=== PATIENT | female | born 1970 | race Caucasian/White ===

== ENCOUNTER 2024-04-08 11:12 | Outpatient (CLI) | payer OTHER, SELFPAY ==
[2024-04-08 12:15] LABS: Hematocrit 42.1 % (37.0-47.0); Hemoglobin 13.2 g/dL (12.0-15.0); Mean Corpuscular HGB Conc 31.4 g/dl (32-36); Mean Corpuscular Hemoglobin 29.1 pg (26-34); Mean Corpuscular Volume 92.7 fl (80-100); Mean Platelet Volume 10.7 fl (7.4-10.4); Platelet Count Result 275 k/mm3 (150-375); Red Blood Count 4.54 M/mm3 (4.2-5.4); Red Cell Distribution Width 14.6 % (11.5-14.5); White Blood Count 7.1 K/mm3 (4.5-10.0)
== END 2024-04-08 11:13 | disposition home or self-care (01) ==
LOC: ANHSURGERY 11:20
PROVIDERS: Obstetrics & Gynecology; PCP Family Medicine; Visit Provider Urology
DX: Z01.818 Encounter for other preprocedural examination (principal); D21.9 Benign neoplasm of connective and other soft tissue, unspecified; I10 Essential (primary) hypertension
CPT/HCPCS: 36415; 85027; 86850; 86900; 86901

== ENCOUNTER 2024-04-11 00:07 | Day surgery (SDC) | payer OTHER, SELFPAY ==
[2024-04-04 13:25] VITALS: BMI 36.3
--- NOTE | 2024-04-04 13:40 | PC.NURSE ---
Report to the Outpatient Waiting Room, entrance under the green pavilion located off [facility], at time _0600_ on date _[id number]_. Planned Procedure Time: _0730_.? Time changes happen often and if your time is changed the preop area will call you the afternoon before. - You and your visitor will be asked to self-screen and do not enter if you have any COVID symptoms. Please call surgeon if you need to reschedule. - A mask is optional within the hospital at this time. Patients may have clear liquids (water, carbonated beverages, clear teas, apple juice) until 3 hours prior to surgery with a maximum of 20 ounces. - No food from midnight until time of surgery and no smoking, or chewing tobacco (or any form of nicotine). No chewing gum, candy or mints. Take only the following medications with a SIP of water on the morning of surgery: ___Flecanide and Advair. Ok to use proair if needed.___ DO NOT STOP ANY OF YOUR OTHER PRESCRIPTION MEDICATIONS PRIOR TO SURGERY EXCEPT THE FOLLOWING Hold all vitamins and supplements for 3 days per anesthesiologist. Medications to discontinue per physician Date to take last dose Please no make-up, nail chinese, hairspray, perfume, deodorant, or body powder the day of surgery.? No jewelry (including any body piercings) or valuables the day of surgery, leave them at home.? Please take a shower or bath the night before, or the morning of, surgery with an antibacterial soap.? Wear comfortable, loose fitting clothing.? - Jewelry must be removed prior to entering the operating room.? Rings and piercings that are not removed may be cut off. - The hospital will not accept responsibility for valuables.? - Please leave all valuables, including medications, at home the day of surgery. If you are going home after surgery, a licensed team cdl driver must drive you home.? - NO public transportation without another adult if you receive anesthesia. - We recommend that an adult stay with you for 24 hours following discharge. - We also recommend that you do not drive, make important decision, drink alcoholic beverages, or take any drugs that were not prescribed by your health care provider for at least 24 hours after your discharge time. Follow any additional instructions given to you from your surgeon. Telephone instructions given to __Efrem__and asked if any additional questions and then verbalized understanding. Patient advised to call surgeon office or pre surgery nurse liaison [phone] if any additional questions.
--- NOTE | 2024-04-07 17:50 | PM.IMHP ---
H&P: HPI History of Present Illness Date/Time: 04/07/24 17:50 Chief Complaint: LAURO Narrative: desires treatment of LAURO at the time of her HYST Review of Systems Review of Systems: All systems reviewed & are unremarkable except as noted in HPI and below PMFSH Past Medical History Medical History Fatty tumor removed from right foot Depression Heart disease Asthma Hypertension Surgical History Surgical History H/O neck surgery discs removed and donor ones replaced screws and metal H/O tubal ligation (~2003) Family History Family History Grandparent Cerebrovascular accident maternal grandmother Acute myocardial infarction paternal grandfather Heart disease paternal gradnfather Hypertension paternal grandfather Social History Social History Smoking status: Never smoker Second hand tobacco smoke exposure: No Alcohol intake: never Substance use: current Substance use type: marijuana Other substance usage details: once every couple of months. 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 Gender identity (if verbalized by the patient): Female Sexual Orientation (if Verbalized by the Patient): Bisexual Spiritual care concerns: No Meds Home Medications and Allergies Home Medications ?Medication ?Instructions ?Recorded ?Confirmed ?Type alprazolam 0.25 mg tablet 0.25 mg PO QHS PRN insomnia 11/13/23 04/04/24 History atorvastatin 20 mg tablet 20 mg PO DAILY 11/13/23 04/04/24 History flecainide 100 mg tablet 50 mg PO Q12H 11/13/23 04/04/24 History fluticasone 250 mcg-salmeterol 50 1 inh inhalation BID 11/13/23 04/04/24 History mcg/dose blistr powdr for inhalation (Advair Diskus) hydrocodone 5 mg-acetaminophen 325 1 tablet PO Q8H PRN pain 11/13/23 04/04/24 History mg tablet lisinopril 20 mg tablet 20 mg PO DAILY 11/13/23 04/04/24 History quetiapine 200 mg tablet 200 mg PO QHS 11/13/23 04/04/24 History sertraline 100 mg tablet 100 mg PO DAILY 11/13/23 04/04/24 History albuterol sulfate 90 mcg/actuation 2 inh inhalation QID PRN shortness 04/04/24 04/04/24 History aerosol inhaler of breath or wheezing metoprolol succinate 25 mg 25 mg PO DAILY 04/04/24 04/04/24 History tablet,extended release 24 hr Allergies Allergy/AdvReac Type Severity Reaction Status Date / Time latex AdvReac Severe Swelling Verified 04/04/24 13:21 of Lip/Tongue/Throat Penicillins AdvReac Severe Swelling Verified 04/04/24 13:21 of Lip/Tongue/Throat shellfish derived AdvReac Severe Swelling Verified 04/04/24 13:21 of Lip/Tongue/Throat Exam Narrative: + urethral hypermobility Assessment and Plan Assessment and plan (1) LAURO (stress urinary incontinence, female): Code(s): N39.3 - Stress incontinence (female) (male) Status: Acute Assessment and Plan: urethral sling
--- NOTE | 2024-04-09 16:29 | P.HP_ITS ---
H&P: HPI History of Present Illness Date/Time: 04/09/24 16:29 53-year-old 3 para 2011 female presents with menstrual cycles which had been quite heavy and prolonged with cramping discomfort multiple fibroids were noted on CT scan. Since that time which was approximately 6 months ago she is not having any significant bleeding though does continue to have pelvic cramping and some left lower quadrant pain. Also has had an issue with painful intercourse over the past few months as well. Ultrasound did it reveal enlarged uterus with multiple fibroids. For ovaries themselves without abnormality. also relates stress incontinence, which occurs at least 90 present time with any type of coughing laughing or leaking. Chief Complaint: Fibroid uterus Review of Systems Review of Systems: All systems reviewed & are unremarkable except as noted in HPI and below PMFSH Past Medical History Medical History Fatty tumor removed from right foot Depression Heart disease Asthma Hypertension Surgical History Surgical History H/O neck surgery discs removed and donor ones replaced screws and metal H/O tubal ligation (~2003) Family History Family History Grandparent Cerebrovascular accident maternal grandmother Acute myocardial infarction paternal grandfather Heart disease paternal gradnfather Hypertension paternal grandfather Social History Social History Smoking status: Never smoker Second hand tobacco smoke exposure: No Alcohol intake: never Substance use: current Substance use type: marijuana Other substance usage details: once every couple of months. 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 Gender identity (if verbalized by the patient): Female Sexual Orientation (if Verbalized by the Patient): Bisexual Spiritual care concerns: No Meds Home Medications and Allergies Home Medications ?Medication ?Instructions ?Recorded ?Confirmed ?Type alprazolam 0.25 mg tablet 0.25 mg PO QHS PRN insomnia 11/13/23 04/04/24 History atorvastatin 20 mg tablet 20 mg PO DAILY 11/13/23 04/04/24 History flecainide 100 mg tablet 50 mg PO Q12H 11/13/23 04/04/24 History fluticasone 250 mcg-salmeterol 50 1 inh inhalation BID 11/13/23 04/04/24 History mcg/dose blistr powdr for inhalation (Advair Diskus) hydrocodone 5 mg-acetaminophen 325 1 tablet PO Q8H PRN pain 11/13/23 04/04/24 History mg tablet lisinopril 20 mg tablet 20 mg PO DAILY 11/13/23 04/04/24 History quetiapine 200 mg tablet 200 mg PO QHS 11/13/23 04/04/24 History sertraline 100 mg tablet 100 mg PO DAILY 11/13/23 04/04/24 History albuterol sulfate 90 mcg/actuation 2 inh inhalation QID PRN shortness 04/04/24 04/04/24 History aerosol inhaler of breath or wheezing metoprolol succinate 25 mg 25 mg PO DAILY 04/04/24 04/04/24 History tablet,extended release 24 hr Allergies Allergy/AdvReac Type Severity Reaction Status Date / Time latex AdvReac Severe Swelling Verified 04/04/24 13:21 of Lip/Tongue/Throat Penicillins AdvReac Severe Swelling Verified 04/04/24 13:21 of Lip/Tongue/Throat shellfish derived AdvReac Severe Swelling Verified 04/04/24 13:21 of Lip/Tongue/Throat Exam Const: General: cooperative, healthy appearing and comfortable Resp: Effort & Inspection: normal respiratory effort Auscultation: clear to auscultation bilaterally Cardio: Rate: regular rate Rhythm: regular rhythm GI: Inspection: normal to inspection Auscultation: normal bowel sounds : External Female Exam: normal external appearance Speculum Exam - Vagina: normal appearance of the vagina Speculum Exam - Cervix: normal appearance of the cervix Bimanual exam- vagina & uterus: enlarged ( 8-10 week size) and Uterine tenderness Assessment and Plan Assessment and plan (1) Enlarged uterus: Code(s): N85.2 - Hypertrophy of uterus Status: Acute (2) Fibroid uterus: Code(s): D25.9 - Leiomyoma of uterus, unspecified Status: Acute (3) Dyspareunia: Status: Acute Plan 1. Proceed with robotic assisted laparoscopic hysterectomy with bilateral salpingectomy 2. Sling procedure to be performed by Dr. Murray
[2024-04-11] VITALS (13 sets, daily range): BP systolic 108–142; BP diastolic 58–96; PULSE 61–79; RESP 10–20; TEMP 36–36.9; O2SAT 94–100
--- OUTSIDE RECORDS SUMMARY | 2024-04-11 00:10 | XMS_ITS | Data Portability ---
Author Organization [facility], [address] [place] [address] [place]rology ([place]) Address [address] [place] [address] Care Team Providers Care Warehouse Associate Driver Name Role Phone PADMAJA AGUILERA Primary Care Provider Assessment Encounter Date Assessment Date Assessment LastModified by Organization Details LastModified Time 03/12/2024 03/12/2024 53-year-old femelio nathan with past medical history of PVCs, hypertension, depression, asthma is here to establish care as part of preoperative cardiovascular evaluation prior to undergoing hysterectomy. She endorses intermittent palpitations which have been present for quite some time, she denies any increase in symptoms. She was placed on flecainide by electrophysiology. She was unable to follow-up with them due to health insurance reasons. She notes intermittent episodes of chest pain more so with higher levels of stress. No shortness of breath at worst.. Denies lower extremity edema orthopnea PND. She has intermittent lightheadedness however no syncopal events She quit smoking 1992. She is here with her . She mentions her grandfather had open heart surgery, father had hypertension. Cardiac evaluation EKG 03/12/2024 sinus rhythm, possible anterior MD Stress echo 2020 no evidence of ischemia, Holter monitor 2020 demonstrated PACs, no sustained arrhythmias. Imaging laboratory studies reviewed Assessment and plan 1. Preoperative cardiac evaluation prior to undergoing hysterectomy EKG today demonstrates sinus rhythm, cannot rule out anterior MD. Patient endorses intermittent episode of chest pain however somewhat atypical. Recommend to proceed with a stress test to rule out ischemia. If stress test is normal, she may proceed with surgery as intermediate risk 2. Hypertension is controlled on lisinopril and metoprolol succinate. Continue medications. 3. Premature atrial contractions, currently on flecainide and metoprolol succinate. Patient was previously seen by electrophysiology. She reports at some point she was offered an ablation however I do not have all the records available. She is unable to follow-up with her crate icer due to insurance reasons. She is interested in establishing with a new crate icer later this summer. Will place a referral 4. Hyperlipidemia, continue atorvastatin. Advised on lifestyle changes and dietary adjustments. 5. Exertional dyspnea is likely multifactorial given asthma and deconditioning. Will obtain stress test. Will tentatively plan for follow-up visit in 1 year or sooner if needed based on the results of her stress test. All of her questions were answered. [email or web address] Not available 03/12/2024 17:57:48 Plan of Treatment Reminders Order Date Submit Date Provider Last Modified By Organization Details Last Modified Time Details Appointments None record ed. Lab None record ed. Referral None record ed. Procedures None record ed. Surgeries None record ed. Imaging None record ed. Medication Orders None record ed. Patient TargetsNo targets recorded. Patient InstructionsNo instructions recorded. Reason for Referral None Reported. Results Created Date Observation Date Name Description Value Unit Range Abnormal Flag Note LastModifiedBy Organization Detail LastModifiedTime 03/12/19 25 03/12/2024 elect rocar diogr am, routi ne ECG, 12 leads min No observ ation record ed. INTERFACE [facility] [address] [address], [place], [address], 03/12/2024 15:50:17 03/13/19 25 03/12/2024 elect rocar diogr am, routi ne ECG, 12 leads min No observ ation record ed. INTERFACE [facility] [address] [address], [place], [address], 03/13/2024 13:45:24 04/03/19 25 04/01/2024 arden s echoc [facility] [address] [place] [id number] Ph: [email or web address] Stress Echoca rdiogr am Report Name: Berta Louie Study Date: 2024 : 1970 0[birth year] Gender : Female Age: 53 yrs Height : 61 in Weight : 192 lb BSA: 1.9 m2 Orderi ng Physic florin: AniaMonalisana Perfor med By: Landy abarca, [facility] Reason For Study: Chest Pain R07.9 Patien t Locati on: CARDIO LOGY Medica tions: See chart Interp retati on Summar y Subopt imal stress test due to inadeq uate maximu m heart rate. The patien t achiev ed 74 % of maximu m predic maggie heart rate. No ischem ia at heart rate achiev ed. Cannot rule out ischem ia at higher heart rate. PROCED URE: Physic florin superv ision provid ed by: Angie Guzmán DO. A stress echoca rdiogr am was perfor med inlcud ing 2D, limite d Color. Inform ed consen t for Exerci se Stress Echoca rdiogr am was obtain ed prior to the proced ure. Test perfor med by: Joe razo RN. Echoca rdiogr aphic images were obtain ed before and after stress . patien t ended test early, jumped off treadm ill. did not meet target HR. There were no compli cation s. There were techni baljeet limita tions during this study due to lung artifa ct and patien ts body habitu s.. PROTOC OL: The patien t exerci sed for 6 min. and 37 sec. using the Vinicio protoc ol. REASON FOR STOPPI NG: The test was stoppe d due to dyspne a. The patien t did not have chest pain. PARAME TERS: Test perfor med by: Joe razo RN. The patien t reache d a maximu m heart rate of 126 beats per minute . The patien t achiev ed 74 % of maximu m predic maggie heart rate. The METS achiev ed was 9.4. Target Heart Rate was not achiev ed due to dyspne a. BLOOD PRESSU RE: Baseli ne blood pressu re was normal . ARRHYT HMIA: No signif icant ECG change s or arrhyt hmias with exerci se. ECG- REST: The baseli ne ECG displa ys normal sinus rhythm . ECG- STRESS : No diagno stic ST segmen t change s were seen. REST ECHO: The Ejecti on Fracti on estima te at rest is 55-60% . The left ventri cular wall motion is normal . STRESS ECHO: The Ejecti on Fracti on estima te at peak exerci se is 65- 70%. There was normal augmen tation of all left ventri cular wall segmen ts post exerci se. The left ventri cular chambe r size was decrea sed at peak stress . RECOVE RY: EKG return ed to [facility]. All sympto ms resolv ed in recove ry. Stress Result s Maximu m Predic maggie HR: 167 bpm Target HR: 142 bpm % Maximu m Predic maggie HR: 75 % Stage Durati onHear t Rate BP (mm:ss ) (bpm) Restin g 67 118/84 I 3:00 100 122/84 II 3:00 121 134/92 II 0:37 126 / R 1:00 106 154/98 2:00 91 146/84 2:00 89 138/84 Stress Durati on: 10:37 mm:ss Recove ry Time: 1:00 mm:ss Maximu m Stress HR: 126 bpm Measur ement Normal s Electr onical ly signed by:Claudine Jorge 2024 12:49 PM cc: Berta Louie 2024 STRESS ECHO INTERFACE [facility] [address] [place] [address], [address], 04/03/2024 13:50:11 Result Notes None recorded. Problems Name Problem SNOMED Code Status Onset Date Resolution Date Notes Provider Name and Address Organization Details Recorded Time Chest pain 05631402 Active 2024 Karin Andrews [facility], [facility] 5 15:07:57 Preoperative state 90043824 Active 2024 Nehal Jorge, DO [address] [place] [address], [phone], [facility] 5 17:57:20 Premature atrial contraction 121920219 Active 2024 Nehal Jorge, DO [address] [place] [address], [phone], [facility] 17:57:30 Mixed hyperlipidemia 838111733 Active 2024 Nehal Ania, DO [address] , [place], [address], [facility] 17:57:55 Problem Notes None recorded. Procedures Surgical History None recorded. Imaging Results Imaging Date Name Status LastModified by Organization Details LastModified Time 03/12/2024 electrocardiogram, routine ECG, 12 leads min completed INTERFACE [facility] [address] [address], [place], [address], 03/12/2024 15:50:17 03/12/2024 electrocardiogram, routine ECG, 12 leads min completed INTERFACE [facility] [address] [address], [place], [address], 03/13/2024 13:45:24 04/01/2024 stress echocardiogram completed INTERFACE [facility] [address] , [place], [address], 04/03/2024 13:50:11 Procedure Notes None recorded. Medical Equipment None Reported. Medications Name Sig Start Date Stop Date Status Note LastModified by Organization Details LastModified Time prednisone 10 mg tablet TAKE 3 TABLETS BY MOUTH DAILY active Not Available Not Available No t Available atorvastatin 20 mg tablet TAKE 1 TABLET BY MOUTH DAILY active Not Available Not Available No t Available albuterol sulfate 1.25 mg/3 mL solution for nebulization USE 1 VIAL IN NEBULIZER EVERY 4 HOURS NEEDED active Not Available Not Available No t Available hydrocodone 5 mg-acetaminop hen 325 mg tablet TAKE 1 TABLET BY MOUTH EVERY 6 HOURS NEEDED FOR PAIN active Not Available Not Available No t Available lisinopril 20 mg tablet TAKE 1 TABLET BY MOUTH DAILY active Not Available Not Available No t Available prednisone 20 mg tablet TAKE 2 TABLETS BY MOUTH DAILY IN THE MORNING WITH BREAKFAST FOR 5 DAYS active Not Available Not Available N ot Available sertraline 100 mg tablet TAKE 1 AND 1/2 TABLETS BY MOUTH DAILY active Not Available Not Available No t Available quetiapine 200 mg tablet TAKE 1 TABLET BY MOUTH AT BEDTIME active Not Available Not Available No t Available meclizine 12.5 mg tablet TAKE 1 TO 2 TABLETS BY MOUTH EVERY 6 HOURS NEEDED FOR DIZZINESS active Not Available Not Available No t Available alprazolam 0.5 mg tablet TAKE 1 TABLET BY MOUTH EVERY 8 HOURS NEEDED DO NOT TAKE WITH FIORICAT active Not Available Not Available No t Available benzonatate 100 mg capsule TAKE 1 TO 2 CAPSULES BY MOUTH EVERY 8 HOURS FOR 5 DAYS NEEDED FOR COUGH active Not Available Not Available No t Available dexamethasone 2 mg tablet TAKE 5 TABLETS BY MOUTH DAILY IN THE MORNING FOR 1 DAY active Not Available Not Available No t Available flecainide 100 mg tablet TAKE 1 TABLET BY MOUTH TWICE DAILY active Not Available Not Available No t Available gabapentin 300 mg capsule TAKE 1 CAPSULE BY MOUTH AT BEDTIME active Not Available Not Available No t Available metoprolol succinate ER 25 mg tablet,extend ed release 24 hr TAKE 1 TABLET BY MOUTH DAILY active Not Available Not Available No t Available cefuroxime axetil 500 mg tablet TAKE 1 TABLET BY MOUTH TWICE DAILY active Not Available Not Available No t Available albuterol sulfate HFA 90 mcg/actuation aerosol inhaler INHALE 2 PUFFS BY MOUTH EVERY 4 TO 6 HOURS NEEDED FOR SHORTNESS OF BREATH OR WHEEZING active Not Available Not Available No t Available ondansetron 4 mg disintegratin g tablet DISSOLVE 1 TABLET ON THE TONGUE FOUR TIMES DAILY NEEDED active Not Available Not Available No t Available butalbital-ac etaminophen-c affeine 50 mg-300 mg-40 mg capsule TAKE ONE CAPSULE BY MOUTH EVERY 6 HOURS NEEDED active Not Available Not Available No t Available Wixela Inhub 250 mcg-50 mcg/dose powder for inhalation INHALE 1 PUFF BY MOUTH TWICE DAILY active Not Available Not Available No t Available Vitals Date Recorded Heart rate Oxygen saturation Oxygen saturation in Arterial blood by Pulse oximetry Body weight Systolic blood pressure Diastolic blood pressure Provider Name and Address Organization Details Last Updated DateTime 5 76 /min 97 % 97 % 29993.1 g 140 mm[Hg] 88 mm[Hg] Niki Quintana [facility] 5 14:29:31 Social History None recorded. Functional Status None recorded. Mental Status None recorded. Family History Nothing Reported. Medical History No medical history recorded. Gynecological HistoryNo gynecological history recorded. Obstetrics History GPAL:G 0 P 0 0 0 0 Past Encounters Encounter ID Performer Location Encounter Start Date Encounter Closed Date Diagnosis/Indication Diagnosis SNOMED-CT Code Diagnosis ICD10 Code Diagnosis Note [id number] Nehal Ania, DO [address] [facility] [facility] ([place]) [address] [place] [address] 03/12/2024 14:05:33 03/12/2024 15:45:07 Chest pain 31984183 R07.89 Preoperative state 82470 002 Z01.818 Premature atrial contraction 158094046 I49.1 Mixed hyperlipidemia 267 288907 E78.2 Health Concerns Section Related Observation LastModified by Organization Detai ls LastModified Time None Recorded Concern Status LastModified by Organization Details LastModified Time None Recorded Advance Directives Directive None Recorded Payers Encounter Date Sequence Insurance Name Policy Number Policy Mata Covered Member ID Mata Member ID Guarantor Name 03/12/2024 1 [employer] (PPO) [id number] Efrem Louie [id number] Efrem Louie OBGyn Episode No OBEpisode recorded.
--- OUTSIDE RECORDS SUMMARY | 2024-04-11 00:10 | XMS_ITS | Encounter Summary ---
Author Organization [facility] Address [facility] [place] [address] Care Team Providers Care Divider Operator Name Role Phone Cesar Ruiz MD Primary Care Provider [phone] Vinay Gomes MD Unavailable [phone] Richard Smith MD Unavailable Unavailabl Stephanie PhillipsP Unavailable [phone] Reason for Visit * Reason Onset Date Comments Results 01/25/2021 Encounter Details Date Type Department Care Team (Late st Contact Info) Description 01/25/2021 Telephone [facility] [address] [place] [address] Vinay Gomes MD [address] [place] [address] Results Social History Tobacco Use Types Packs/Day Years Used Date Smoking Tobacco: Former Cigarettes Q uit: 1992 Smokeless Tobacco: Never Alcohol Use Standard Drinks/Week Comments No 0 (1 standard drink = 0.6 oz pur e alcohol) AUDIT-C Answer Date Recorded Frequency of Alcohol Consumption Monthly or less 09/05/2018 Average Number of Drinks Not on file 019 Frequency of Binge Drinking Not on file 08/08 Comments No Sex and Gender Information Value Date Recorded Sex Assigned at Female 02/22/2024 9:30 PM JIG AND FIXTURE MAKER Legal Sex Female 8:33 PM CDT Gender Identity Not on file Sexual Orientation Not on file 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 No / Unsure 01/15/2021 1:58 PM JIG AND FIXTURE MAKER documented as of this encounter Functional Status * RETIRED Are you deaf or do you have serious difficulty hearing Answer Date of Assessment Author Status No 04/17/2019 4:00 PM CDT Activ e * RETIRED Are you blind or do you have serious difficulty seeing, even when wearing glasses? Answer Date of Assessment Author Status No 04/17/2019 4:00 PM CDT Activ e * Do you have serious difficulty walking or climbing stairs? Answer Date of Assessment Author Status No 04/17/2019 4:00 PM CDT No Hall RN A ctive * Do you have difficulty dressing or bathing? Answer Date of Assessment Author Status No 04/17/2019 4:00 PM CDT No Hall RN A ctive * Because of a physical, mental, or emotional condition, do you have difficulty doing errands alone such as visiting a doctor's office or shopping? Answer Date of Assessment Author Status No 04/17/2019 4:00 PM CDT No Hall RN A ctive documented as of this encounter Mental Status * Because of a physical, mental, or emotional condition, do you have serious difficulty concentrating, remembering, or making decisions? Answer Entry Date Author Status No 04/17/2019 4:00 PM CDT oN Hall RN A ctive documented in this encounter Progress Notes * Nyla Brice RN - 01/25/2021 2:16 PM CST I already did. Duplicate documentation AND FIXTURE MAKER * Crystal Murray - 01/25/2021 2:09 PM CST VOICEMAIL MESSAGE: Please return call to patient with stress test results AND FIXTURE MAKER documented in this encounter Plan of Treatment Not on file documented as of this encounter Visit Diagnoses Not on filedocumented in this encounter Additional Health Concerns Infection Onset Date Last Indicated Resolved Time COVID-19 Rule Out 06/05/2022 06/05/2022 06/05/2022 8:24 PM CDT COVID-19 Rule Out 02/15/2024 02/15/2024 02/15/2024 12:47 PM JIG AND FIXTURE MAKER documented as of this encounter Care Teams Divider Operator Relationship Specialty Start Date End Date Cesar Ruiz MD [address] [facility] [address] [place] [address] PCP - General FAMILY PRACTICE 11/02/17 Vinay Gomes MD [address] [place] [address] EP Credit Operations Specialist CARDIAC ELECTROPHYSIOLOGY 01/24/19 Richard Smith MD [address] [place] [address] Consulting Physician ORTHOPAEDIC SURGERY 02/18/19 Stephanie Alba, CHLOROBUTADIENE SCRUBBER OPERATOR [address] [place] [address] FAMILY PRACTICE 02/18/19 documented as of this encounter
--- OUTSIDE RECORDS SUMMARY | 2024-04-11 00:10 | XMS_ITS | Clinical Summary ---
Author Organization [facility] Address [address] [place] [address] Care Team Providers Care Bed Teacher Name Role Phone Cesar Ruiz MD Primary Care Provider [phone] Vinay Gomes MD Unavailable [phone] Richard Smith MD Unavailable UnavailStephanie WellerP Unavailable [phone] Allergies Active Allergy Reactions Criticality Noted Date Comments Povidone Iodine Hives Medium 12/07/2017 Doxycycline Rash Medium 04/12/2019 Fruit Anaphylaxis High 09/26/2018 Tropical fruit Latex Shortness of Breath High 12/07/2017 Penicillins Anaphylaxis High 12/07/2017 Shellfish-Derived Products Anaphylaxis High 12/07/2017 Medications PROAIR HFA 108 (90 Base) MCG/ACT inhaler Inhale 1 puff into the lungs as needed. 3 8 Active albuterol (2.5 MG/3ML) 0.083% nebulizer solution as needed. 2 8 Active ALPRAZolam 0.5 MG tablet Take 1 tablet (0.5 mg total) by mouth every 8 (eight) hours as needed. 0 8 Active atorvastatin 20 MG tablet Take 1 tablet (20 mg total) by mouth nightly at bedtime. 1 8 Active EPINEPHrine 0.3 MG/0.3ML injection as needed. 1 8 Active ADVAIR DISKUS 250-50 MCG/DOSE inhaler Inhale 1 puff into the lungs 2 (two) times a day. 3 8 Active lisinopril 20 MG tablet Take 1 tablet (20 mg total) by mouth nightly. 8 Active sertraline 100 MG tablet Take 1.5 tablets (150 mg total) by mouth nightly. 8 Active QUEtiapine 100 MG tablet Take 2 tablets (200 mg total) by mouth nightly at bedtime. 2 9 Active metoprolol succinate ER 25 MG 24 hr tablet Take 1 tablet (25 mg total) by mouth daily. 90 tablet 1 Active flecainide (TAMBOCOR) 100 MG tablet TAKE 1 TABLET TWICE A DAY 180 tablet 2 Active butalbital-acetamin ophen-caffeine (FIORICET) 50-300-40 MG capsule TAKE ONE CAPSULE BY MOUTH EVERY 6 HOURS NEEDED 2 Active ondansetron (ZOFRAN-ODT) 4 MG disintegrating tablet Take 1 tablet (4 mg total) by mouth every 8 (eight) hours as needed for Nausea. 20 tablet 3 Active HYDROcodone-acetami nophen (NORCO) 5-325 MG tabletIndications:A cute Pain < 3 Day Supply Take 1-2 tablets by mouth every 6 (six) hours as needed. Indications: Acute Pain < 3 Day Supply 12 tablet 4 Active ondansetron (ZOFRAN-ODT) 4 MG disintegrating tabletIndications:L eft lower quadrant abdominal pain Take 1 tablet (4 mg total) by mouth every 6 (six) hours as needed for Nausea. 10 tablet 4 Active Active Problems Problem Noted Date Diagnosed Date Cervical spine pain 04/17/2019 Essential (primary) hypertension 02/21/2019 Lipoma of right lower extremity 10/17/2018 Radiculopathy, cervical region 09/20/2018 PAC (premature atrial contraction) 12/07/2017 Resolved Problems Problem Noted Date Diagnosed Date Resolved Date Pre-operative cardiovascular examination 02/21/2019 10/18/2019 Encounters Date Type Department Care Team Description 02/25/2024 9:55 AM MANAGER ADMINISTRATIVE SERVICES - 02/25/2024 10:35 AM [facility] [place] [facility] [address] [place] [address] Wagnon, Markie A, DO Animal Bite Discharge Disposition: Home or Self Care (Routine Discharge) 02/25/2024 Travel 02/22/2024 9:12 PM MANAGER ADMINISTRATIVE SERVICES - 02/22/2024 9:44 PM [facility] [place] [facility] [address] [place] [address] [place] [address] Low Carrillo MD Animal Bite Discharge Disposition: Home or Self Care (Routine Discharge) 02/22/2024 Travel 02/15/2024 11:52 AM MANAGER ADMINISTRATIVE SERVICES - 02/15/2024 1:49 PM [facility] [facility] [address] [place] [address] [place] [address] Pippa Valdez DO URI Discharge Disposition: Home or Self Care (Routine Discharge) 02/15/2024 Travel from Last 3 Months Immunizations Name Administration Dates Next Due Afluria 36 MONTHS+ (Prefilled Syringe IIV4) 04/06 Family History Medical History Relation Comments Stent Cardiac Father Stroke Maternal Grandmother Asthma Mother COPD Mother Depression Mother Heart Disease Mother Heart Attack Paternal Grandfather Open Heart Paternal Grandfather Stent Cardiac Paternal Grandfather Relation Status Comments Father Alive Maternal Grandmother Mother Alive Paternal Grandfather Social History Tobacco Use Types Packs/Day Years Used Date Smoking Tobacco: Former Cigarettes Q uit: 1991 Smokeless Tobacco: Never Tobacco Cessation:Counseling Given: Not Answered Alcohol Use Standard Drinks/Week Comments Yes 0 (1 standard drink = 0.6 oz pur e alcohol) occasional AUDIT-C Answer Date Recorded Frequency of Alcohol Consumption Monthly or less 09/05/2018 Average Number of Drinks Not on file 019 Frequency of Binge Drinking Not on file 08/08 Comments No Sex and Gender Information Value Date Recorded Sex Assigned at Female 02/22/2024 9:30 PM MANAGER ADMINISTRATIVE SERVICES Legal Sex Female 8:33 PM CDT Gender Identity Not on file Sexual Orientation Not on file 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 Not on file Not on file Last Filed Vital Signs Vital Sign Reading Time Taken Comments Blood Pressure 135/65 02/25/2024 10:30 AM MANAGER ADMINISTRATIVE SERVICES Pulse 76 02/25/2024 10:30 AM MANAGER ADMINISTRATIVE SERVICES Temperature 36.3 C (97.3 F) 02/25/2024 10:05 AM MANAGER ADMINISTRATIVE SERVICES Respiratory Rate 18 02/25/2024 10:30 AM MANAGER ADMINISTRATIVE SERVICES Oxygen Saturation 100% 02/25/2024 10:30 AM MANAGER ADMINISTRATIVE SERVICES Inhaled Oxygen Concentration - - Weight 89.2 kg (196 lb 9.6 oz) 02/25/2024 10:05 AM MANAGER ADMINISTRATIVE SERVICES Height 154.9 cm (5' 1 ) 02/25/2024 10:05 AM MANAGER ADMINISTRATIVE SERVICES Body Mass Index 37.15 02/25/2024 10:05 AM MANAGER ADMINISTRATIVE SERVICES Plan of Treatment Health Maintenance Due Date Last Done Comments Cervical Cancer Screening Pa p Smear (Age 30 to 64) Every 3 Years 1970 Colorectal Cancer Screening Colonoscopy (10 Years) 1970 Annual Physical 1973 Pneumococcal Vaccine: Pediat rics (0 to 5 Years) and At-Risk Patients (6 to 64 Years) (1 of 2 - PCV) 1976 Hepatitis C 1988 DTaP, Tdap and Td Vaccines ( 1 - Tdap) 1989 Hepatitis B Vaccines (1 of 3 - 19+ 3-dose series) 1989 Cervical Cancer Screening Pa p with HPV Testing (Age 30 to 64) Every 5 Years 2000 Cervical Cancer Screening with HPV 2000 Mammogram Screening 2010 Zoster Vaccines (1 of 2) 2020 COVID-19 Vaccine (2023-2 5 season) 2023 Influenza Adult (#1) 2023 04/18/2019 Meningococcal B Vaccine Aged Out No l onger eligible based on patient's age to complete this topic Meningococcal Vaccine Aged Out No skyler delmar eligible based on patient's age to complete this topic RSV Immunizations Under 20 Months Aged Out No longer eligible based on patient's age to complete this topic Medical Devices Implanted Type Area Operations Superintendent Device Identifier Shelf Expiration Date Model / Serial / Lot Cervical Spacer, Lordotic 15mm X 13 Mm X 8mm Implanted:Qty: 1 on 04/17/2019 by [facility] at [facility] N/A: Spine Cervical NEW AGE MEDICAL 04/05/2020 [id number] / [id number] / [id number] Cervical Spacer, Lordotic 15mm X 13 Mm X 8mm Implanted:Qty: 1 on 04/17/2019 by Richard Smith MD at [facility] N/A: Spine Cervical NEW AGE MEDICAL 08/05/2021 [id number] / [id number] / [id number] 34mm 2 Level Plate Implanted:Qty: 1 on 04/17/2019 by Richard Smith MD at [facility] N/A: Spine Cervical [facility] [id number] / / 4.0 X 14mm Fixed Screw Implanted:Qty: 6 on 04/17/2019 by Richard Smith MD at [facility] N/A: Spine Cervical [facility] [id number] / / Explanted Type Area Operations Superintendent Device Identifier Shelf Expiration Date Model / Serial / Lot Pin Distraction Medline 12mm - [id number] Explanted:Qty: 1 on 04/17/2019 by Richard Smith MD at [facility] N/A: Spine Cervical Towi [id number] / / NA Pin Distraction Medline 12mm - [id number] Explanted:Qty: 1 on 04/17/2019 by Richard Smith MD at [facility] N/A: Spine Cervical Towi [id number] / / NA [employer] [place] Od12 Mm Cervical - [id number] Explanted:Qty: 1 on 04/17/2019 by Richard Smith MD at [facility] N/A: Spine Cervical [facility] [id number] 2 / / Procedures Procedure Name Priority Date/Time Associated Diagnosis Comments XR CHEST PA+LAT STAT 02/15/2024 12:32 PM MANAGER ADMINISTRATIVE SERVICES CORONAVIRUS (COVID-19) ANTIGEN STAT 02/15/2024 12:20 PM MANAGER ADMINISTRATIVE SERVICES INFLUENZA A & B STAT 02/15/2024 12:20 PM MANAGER ADMINISTRATIVE SERVICES RESP SYNCYTIAL VIRUS STAT 02/15/2024 12:20 PM MANAGER ADMINISTRATIVE SERVICES COMPREHENSIVE METABOLIC PANEL STAT 02/15/2024 12:19 PM MANAGER ADMINISTRATIVE SERVICES CBC W/DIFF AUTOMATED STAT 02/15/2024 12:19 PM MANAGER ADMINISTRATIVE SERVICES from Last 3 Months Results * XR CHEST PA+LAT (02/15/2024 12:32 PM MANAGER ADMINISTRATIVE SERVICES) Anatomical Region Laterality Modality Chest Radiographic Jacqui ging 02/15/2024 12:3 0 PM MANAGER ADMINISTRATIVE SERVICES Impressions 02/15/2024 12:31 PM MANAGER ADMINISTRATIVE SERVICES IMPRESSION: No significant change. No acute disease. Ordered By: PIPPA VALDEZ Interpreted By: Andrés Osuna MD, 02/15/2024 12:30 PM Narrative 02/15/2024 12:31 PM MANAGER ADMINISTRATIVE SERVICES [address] [place] [address] Examination: Two-view chest Exam time: 1210 hours. Clinical history: Cough. Fever. Comparison: 02/04/2022. Technique: PA and lateral views Findings: The cardiomediastinal silhouette is stable. The heart remains within normal limits for size. Pulmonary vascularity is within normal limits. The lungs and pleural spaces appear free of any active process. The bony thorax is stable. Plate and screw fusion in the lower cervical spine again evident. Procedure Note Andrés Osuna MD - 02/15/[address] [place] [address] Examination: Two-view chest Exam time: 1210 hours. Clinical history: Cough. Fever. Comparison: 02/04/2022. Technique: PA and lateral views Findings: The cardiomediastinal silhouette is stable. The heart remainswithin normal limits for size. Pulmonary vascularity is within normallimits. The lungs and pleural spaces appear free of any active process.The bony thorax is stable. Plate and screw fusion in the lower cervicalspine again evident. IMPRESSION: No significant change. No acute disease. Ordered By: PIPPA VALDEZ Interpreted By: Andrés Osuna MD, 02/15/2024 12:30 PM us Pippa Valdez DO GENERAL IMAGING Final Result * CORONAVIRUS (COVID-19) ANTIGEN (02/15/2024 12:20 PM MANAGER ADMINISTRATIVE SERVICES) CORONAVIRUS ANTIGEN IA NEGATIVE NEGATIVE 02/15/2024 12:47 PM MANAGER ADMINISTRATIVE SERVICES [facility] Comment: NEGATIVE RESULTS DO NOT RULE OUT SARS-COV-2 INFECTION AND SHOULD NOT BE USED THE SOLE BASIS FOR TREATMENT OR PATIENT MANAGEMENT DECISIONS, INCLUDING INFECTION CONTROL DECISIONS. NEGATIVE RESULTS SHOULD BE CONSIDERED IN THE CONTEXT OF A PATIENT'S RECENT EXPOSURES, HISTORY AND THE PRESENCE OF CLINICAL SIGNS AND SYMPTOMS CONSISTENT WITH COVID 19. THIS TEST HAS BEEN AUTHORIZED BY THE FDA UNDER AN EMERGENCY USE AUTHORIZATION (EUA) FOR USE BY AUTHORIZED LABORATORIES. SPECIMEN TYPE NASAL 02/15/2024 12:17 PM MANAGER ADMINISTRATIVE SERVICES [facility] NASAL NASAL STRUCTURE / Unknown 02/15/2024 12:20 PM MANAGER ADMINISTRATIVE SERVICES us Pippa Valdez DO MICROBIOLOGY - GENERAL ORDER YESIKA Final Result Performing Organization Address [facility] Co de Phone Number [facility] [address] [place], [place] [address] [address], * INFLUENZA A & B (02/15/2024 12:20 PM MANAGER ADMINISTRATIVE SERVICES) Pathologist [facility] [place] SPECIMEN TYPE (INFLUENZA) NASOPHARYNGEAL SWAB 02/15/2024 12:17 PM MANAGER ADMINISTRATIVE SERVICES [facility] INFLUENZA A NEGATIVE NEGATIVE 02/15/2024 1:04 PM MANAGER ADMINISTRATIVE SERVICES [facility] INFLUENZA B NEGATIVE NEGATIVE 02/15/2024 1:04 PM MANAGER ADMINISTRATIVE SERVICES [facility] Comment: A NEGATIVE RESULT DOES NOT EXCLUDE INFLUENZA VIRUS INFECTION. IF INFLUENZA IS CIRCULATING IN YOUR COMMUNITY, A DIAGNOSIS OF INFLUENZA SHOULD BE CONSIDERED BASED ON A PATIENT'S CLINICAL PRESENTATION AND EMPIRIC ANTIVIRAL TREATMENT SHOULD BE CONSIDERED IF INDICATED. NASAL NASOPHARYNGEAL SWAB / Unknown 02/15/2024 12:20 PM MANAGER ADMINISTRATIVE SERVICES us Pippa Valdez DO MICROBIOLOGY - GENERAL ORDER YESIKA Final Result Performing Organization Address City/[facility]/ZIP Co de Phone Number [facility] [address] [place], [place] [address] [address], * RESP SYNCYTIAL VIRUS (02/15/2024 12:20 PM MANAGER ADMINISTRATIVE SERVICES) SPECIMEN TYPE NASOPHARYNGEAL SWAB 02/15/2024 12:17 PM MANAGER ADMINISTRATIVE SERVICES [facility] RSV NEGATIVE NEGATIVE 02/15/2024 12:47 PM MANAGER ADMINISTRATIVE SERVICES [facility] NASOPHARYNGEAL SWAB / Unknown 02/15/2024 12:20 PM MANAGER ADMINISTRATIVE SERVICES us Pippa Valdez DO MICROBIOLOGY - GENERAL ORDER YESIKA Final Result [facility] [address] [place] [address], * (ABNORMAL) COMPREHENSIVE METABOLIC PANEL (02/15/2024 12:19 PM MANAGER ADMINISTRATIVE SERVICES) SODIUM S/P/B 141 136 - 145 MMOL/L 02/15/2024 12:45 PM MANAGER ADMINISTRATIVE SERVICES [facility] POTASSIUM S/P/B 4.0 3.5 - 5.1 MMOL/L 02/15/2024 12:45 PM MANAGER ADMINISTRATIVE SERVICES [facility] CHLORIDE S/P/B 102 98 - 107 MMOL/L 02/15/2024 12:45 PM [facility] CO2 31.7 21.0 - 32.0 MMOL/L 02/15/2024 12:45 PM [facility] GLUCOSE 110(H) 70 - 99 MG/DL 02/15/2024 12:45 PM [facility] Comment: FASTING GLUCOSE 100 TO 125 MG/DL IS CONSISTENT WITH IMPAIRED FASTING GLUCOSE. FASTING GLUCOSE >125 MG/DL IS CONSISTENT WITH DIABETES. RANDOM GLUCOSE >200 MG/DL WITH HYPERGLYCEMIC SYMPTOMS IS CONSISTENT WITH DIABETES. PER ADA GUIDELINES BUN 8 6 - 24 MG/DL 02/15/2024 12:45 PM MANAGER ADMINISTRATIVE SERVICES [facility] CREATININE S/P/B 0.88 0.55 - 1.02 MG/DL 02/15/2024 12:45 PM [facility] CALCIUM S/P/B 9.0 8.4 - 10.5 MG/DL 02/15/2024 12:45 PM [facility] BILIRUBIN TOTAL S/P/B 0.4 0.2 - 1.0 MG/DL 02/15/2024 12:45 PM [facility] Comment: THIS ASSAY IS NOT RECOMMENDED FOR PATIENTS UNDERGOING TREATMENT WITH ELTROMBOPAG DUE TO THE POTENTIAL FOR FALSELY ELEVATED RESULTS. ALKALINE PHOSPHATASE S/P/B 109(H) 41 - 108 U/L 02/15/2024 12:45 PM [facility] AST 12(L) 15 - 37 U/L 02/15/2024 12:45 PM [facility] ALT 20 14 - 59 U/L 02/15/2024 12:45 PM [facility] TOTAL PROTEIN S/P/B 7.7 6.4 - 8.2 G/DL 02/15/2024 12:45 PM [facility] ALBUMIN S/P/B 3.1(L) 3.4 - 5.0 G/DL 02/15/2024 12:45 PM [facility] ANION GAP 7.3 5.0 - 15.0 MMOL/L 02/15/2024 12:45 PM [facility] OSMOLALITY (CALC) 291 MOSM/KG 025 12:45 PM [facility] Comment:REFERENCE RANGE NOT ESTABLISHED GFR ESTIMATE 79(L) >89 ML/MIN/1. 73 M2 02/15/2024 12:45 PM [facility] GFR NOTES GFR REFERENCE S: 02/15/2024 12:45 PM [facility] Comment: THE ESTIMATED GFR IS CALCULATED USING THE 2020 CKD-EPI EQUATION. THE FOLLOWING CATEGORIES FOR GRADING RENAL FUNCTION ARE RECOMMENDED BY THE INTERNATIONAL SOCIETY OF NEPHROLOGY (KDIGO 2012 CLINICAL PRACTICE GUIDELINE). G1,NORMAL OR HIGH: >89 ml/min/1.73 m2 G2,MILDLY DECREASED: 60-89 ml/min/1.73 m2 G3A,MILDLY TO MODERATELY DECREASED: 45-59 ml/min/1.73 m2 G3B,MODERATELY TO SEVERELY DECREASED: 30-44 ml/min/1.73 m2 G4,SEVERELY DECREASED: 15-29 ml/min/1.73 m2 G5,KIDNEY FAILURE: <15 ml/min/1.73 m2 02/15/2024 12:1 9 PM MANAGER ADMINISTRATIVE SERVICES us Pippa Valdez DO LABORATORY Final Result [facility] [address] [place] [address], * (ABNORMAL) CBC W/DIFF AUTOMATED (02/15/2024 12:19 PM MANAGER ADMINISTRATIVE SERVICES) WBC 9.55 4.00 - 10.80 x10'3/uL 02/15/2024 12:31 PM MANAGER ADMINISTRATIVE SERVICES [facility] RBC 4.46 4.10 - 5.40 x10'6/uL 02/15/2024 12:31 PM [facility] HGB 12.9 12.0 - 16.0 G/DL 02/15/2024 12:31 PM [facility] HCT 40.6 36.0 - 47.0 % 02/15/2024 12:31 PM [facility] MCV 91.0 78.0 - 100.0 FL 02/15/2024 12:31 PM [facility] MCH 28.9 27.0 - 31.0 PG 02/15/2024 12:31 PM [facility] MCHC 31.8(L) 33.0 - 36.0 G/DL 02/15/2024 12:31 PM [facility] RDW 14.0 11.5 - 14.5 % 02/15/2024 12:31 PM [facility] PLT 286 150 - 350 x10'3/uL 02/15/2024 12:31 PM [facility] MPV 10.1 7.4 - 10.4 FL 02/15/2024 12:31 PM [facility] CBC COMMENT NORMAL REFERENCE RANGE NOT ESTABLISHED FOR THE PROPORTIONAL LEUKOCYTE DIFFERENTIAL. 02/15/2024 12:31 PM [facility] NEUTROPHILS % 77.3 % 02/15/2024 12:31 PM [facility] LYMPHOCYTES % 13.4 % 02/15/2024 12:31 PM [facility] MONOCYTES % 7.6 % 02/15/2024 12:31 PM MANAGER ADMINISTRATIVE SERVICES [facility] EOSINOPHILS % 1.2 % 02/15/2024 12:31 PM MANAGER ADMINISTRATIVE SERVICES [facility] BASOPHILS % 0.2 % 02/15/2024 12:31 PM MANAGER ADMINISTRATIVE SERVICES [facility] IMMATURE GRANS % 0.3 % 02/14/19 12:31 PM MANAGER ADMINISTRATIVE SERVICES [facility] NRBC % 0.0 % 02/15/2024 12:31 PM MANAGER ADMINISTRATIVE SERVICES [facility] ABS. NEUTROPHILS 7.38 1.60 - 8.30 x10'3/uL 02/15/2024 12:31 PM MANAGER ADMINISTRATIVE SERVICES [facility] ABS. LYMPHOCYTES 1.28 0.80 - 4.70 x10'3/uL 02/15/2024 12:31 PM MANAGER ADMINISTRATIVE SERVICES [facility] ABS. MONOCYTES 0.73 0.00 - 1.50 x10'3/uL 02/15/2024 12:31 PM MANAGER ADMINISTRATIVE SERVICES [facility] ABS. EOSINOPHILS 0.11 0.00 - 0.40 x10'3/uL 02/15/2024 12:31 PM MANAGER ADMINISTRATIVE SERVICES [facility] ABS. BASOPHILS 0.02 0.00 - 0.20 x10'3/uL 02/15/2024 12:31 PM MANAGER ADMINISTRATIVE SERVICES [facility] ABS. IMMATURE GRANULOCYTES 0.03 0.00 - 0.03 x10'3/uL 02/15/2024 12:31 PM MANAGER ADMINISTRATIVE SERVICES [facility] ABS. NUCLEATED RBC'S 0.00 0.00 - 0.01 x10'3/uL 02/15/2024 12:31 PM MANAGER ADMINISTRATIVE SERVICES [facility] 02/15/2024 12:1 9 PM MANAGER ADMINISTRATIVE SERVICES Pippa Valdez DO LABORATORY Final Result [facility] [address] [place] [address], from Last 3 Months Insurance GENERIC - COMMERCIAL Care Teams Bed Teacher Relationship Specialty Start Date End Date Cesar Ruiz MD [address] [place] [address] [place] [address] PCP - General FAMILY PRACTICE 11/02/17 Vinay Gomes MD [address] [place] [address] EP Vice President Pharmacy CARDIAC ELECTROPHYSIOLOGY 01/24/19 Richard Smith MD [address] [place] [address] Consulting Physician ORTHOPAEDIC SURGERY 02/18/19 Stephanie Alba, SUPERVISOR MAPPING [address] [place] [address] FAMILY PRACTICE 02/18/19
--- OUTSIDE RECORDS SUMMARY | 2024-04-11 00:10 | XMS_ITS | Encounter Summary ---
Author Organization [facility] System Address [address] [place] [id number] Care Team Providers Care Steam Shovel Operating Engineer Name Role Phone Cesar Ruiz MD Primary Care Provider Vinay Gomes MD Unavailable [phone] Ricahrd Smith MD Unavailable Unavailabl Stephanie Phillips Unavailable [phone] Encounter Details Date Type Department Care Team (Late st Contact Info) Description 07/14/2018 Abstract SFL CONVERSION [address] [place] [address] , Generic Conversion, Social History Tobacco Use Types Packs/Day Years Used Date Smoking Tobacco: Former Cigarettes Q uit: 1991 Smokeless Tobacco: Never Alcohol Use Standard Drinks/Week Comments No 0 (1 standard drink = 0.6 oz pur e alcohol) 1-2 drinks / year AUDIT-C Answer Date Recorded Frequency of Alcohol Consumption Never 12/07/2017 Average Number of Drinks Not on file 018 Frequency of Binge Drinking Not on file 02/2017 Comments Unknown Sex and Gender Information Value Date Recorded Sex Assigned at Female 02/22/2024 9:30 PM GALLERY INTERN Legal Sex Female 8:33 PM CDT Gender Identity Not on file Sexual Orientation Not on file 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 Not on file Not on file documented as of this encounter Plan of Treatment Not on file documented as of this encounter Visit Diagnoses Not on filedocumented in this encounter Additional Health Concerns Infection Onset Date Last Indicated Resolved Time COVID-19 Rule Out 12/10/2019 12/10/2019 12/13/2019 2:02 AM GALLERY INTERN COVID-19 Rule Out 05/01/2020 05/01/2020 05/01/2020 9:52 AM CDT COVID-19 Rule Out 10/22/2020 10/22/2020 10/22/2020 10:39 AM CDT COVID-19 Rule Out 06/05/2022 06/05/2022 06/05/2022 8:24 PM CDT COVID-19 Rule Out 02/15/2024 02/15/2024 02/15/2024 12:47 PM GALLERY INTERN documented as of this encounter Care Teams Steam Shovel Operating Engineer Relationship Specialty [place] [address] [place] [address] [place] [id number] PCP - General FAMILY PRACTICE 11/02/17 Vinay Gomes MD [address] [place] [address] EP Sba Underwriter CARDIAC ELECTROPHYSIOLOGY 01/24/19 Richard Smith MD [address] [place] [address] Consulting Physician ORTHOPAEDIC SURGERY 02/18/19 Stephanie Alba, KENNEY [address] [place] [address] [facility] 02/18/19 documented as of this encounter
--- NOTE | 2024-04-11 04:55 | WPDHPUPDATE1 ---
History and Physical Update Update Date/Time: 04/11/24 04:55 History and Physical has been reviewed, including an updated exam of the patient. There are NO changes in the patient's condition. Risks, benefits, and alternatives have been discussed and questions answered. Patient agrees to proceed with procedure.
[2024-04-11] MEDS: LACTATED RINGERS 1,000 ML 30 ML IV CONT ×3 (06:40→09:51)
[2024-04-11] MEDS: KETOROLAC 15 MG/ML VIAL (*BKC) IV PUSH (06:45)
[2024-04-11] MEDS: ACETAMINOPHEN 500 MG TABLET 1000 MG PO ×3 (06:45→21:10)
--- NOTE | 2024-04-11 06:56 | P.PNAN_ITS ---
Anes - Initial Pre Proc Eval Procedure: Operation Date: 04/11/24 07:30 Proposed Procedures p Robotic Assisted Total Laparoscopic Hysterectomy with Bilateral Salpingectomy, - Ed Degroot MD s Urethral Sling - Jed Murray MD Date/Time: 04/11/24 06:56 Surgeon: Jed Murray MD Pre Op Diagnosis: uterine fibroids, stress incont Patient Data Age: 53 Gender: F Height: 1.55 m Weight: 89.1 kg Last Vital Signs Temp 36.0 C L 04/11/24 06:30 Pulse 69 04/11/24 06:30 Resp 16 04/11/24 06:30 BP 131/74 04/11/24 06:30 Pulse Ox 100 04/11/24 06:30 O2 Del Method Room Air 04/11/24 06:30 Allergies Allergy/AdvReac Type Severity Reaction Status Date / Time latex Allergy Severe Swelling Verified 04/11/24 06:50 of Lip/Tongue/Throat Penicillins Allergy Severe Swelling Verified 04/11/24 06:50 of Lip/Tongue/Throat shellfish derived Allergy Severe Swelling Verified 04/11/24 06:50 of Lip/Tongue/Throat Home Medications ?Medication ?Instructions ?Recorded ?Confirmed ?Type alprazolam 0.25 mg tablet 0.25 mg PO QHS PRN insomnia 11/13/23 04/11/24 History atorvastatin 20 mg tablet 20 mg PO DAILY 11/13/23 04/11/24 History flecainide 100 mg tablet 50 mg PO Q12H 11/13/23 04/11/24 History fluticasone 250 mcg-salmeterol 50 1 inh inhalation BID 11/13/23 04/11/24 History mcg/dose blistr powdr for inhalation (Advair Diskus) hydrocodone 5 mg-acetaminophen 325 1 tablet PO Q8H PRN pain 11/13/23 04/04/24 History mg tablet lisinopril 20 mg tablet 20 mg PO DAILY 11/13/23 04/11/24 History quetiapine 200 mg tablet 200 mg PO QHS 11/13/23 04/11/24 History sertraline 100 mg tablet 100 mg PO DAILY 11/13/23 04/11/24 History albuterol sulfate 90 mcg/actuation 2 inh inhalation QID PRN shortness 04/04/24 04/04/24 History aerosol inhaler of breath or wheezing metoprolol succinate 25 mg 25 mg PO DAILY 04/04/24 04/11/24 History tablet,extended release 24 hr Patient hx anesthesia problems: none Family hx anesthesia problems: none Results Review: All pre-operative results and documents have been reviewed as part of the pre- operative evaluation. [facility] Past Medical History Medical History Fatty tumor removed from right foot Depression Heart disease Asthma Hypertension Surgical History Surgical History H/O neck surgery discs removed and donor ones replaced screws and metal H/O tubal ligation (~2003) Family History Family History Grandparent Cerebrovascular accident maternal grandmother Acute myocardial infarction paternal grandfather Heart disease paternal gradnfather Hypertension paternal grandfather Social History Social History Smoking status: Never smoker Second hand tobacco smoke exposure: No Alcohol intake: never Substance use: current Substance use type: marijuana Other substance usage details: once every couple of months. 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 Gender identity (if verbalized by the patient): Female Sexual Orientation (if Verbalized by the Patient): Bisexual Spiritual care concerns: No Anes - Eval Final PreProcedure Day of Procedure 04/11/24 06:56 Patient weight: obese Heart: regular rate and rhythm Lungs: clear to auscultation Airway: Mallampati scale class II Neurological: alert and oriented Last oral intake: >/= 8 hours ASA classification: III Emergent: no Anesthetic plan: proceed Anesthesia type and monitoring: general ETT and standard monitoring Results Review: All pre-operative results and documents have been reviewed as part of the pre- operative evaluation. Informed Consent: The patient's anesthetic plan and its attendant risks and benefits were discussed with the patient/family/POA. Questions were solicited and answers provided to the satisfaction of the patient/family/POA.
--- NOTE | 2024-04-11 07:16 | WPDHPUPDATE1 ---
History and Physical Update Update Date/Time: 04/11/24 07:16 History and Physical has been reviewed, including an updated exam of the patient. There are NO changes in the patient's condition. Risks, benefits, and alternatives have been discussed and questions answered. Patient agrees to proceed with procedure.
[2024-04-11] MEDS: ceFAZolin 2 GM/D5W 50 ML 2 GM/50 ML BAG IVPB (07:28)
--- NOTE | 2024-04-11 08:02 | P.OP_ITS ---
Procedure Note - Detailed Date of Procedure 04/11/24 Pre-op Diagnosis Stress incontinence Post-op Diagnosis Same Procedure Performed mid urethral sling cystoscopy Surgeon Jed Murray MD Anesthesia General Indications This is a female with confirm stress urinary incontinence. She desires surgical correction. She understands the risks of bleeding, infection, injury to the urinary tract, vaginal mesh extrusion, urinary tract mesh erosion, obstructive voiding requiring a secondary procedure, hip and leg pain, dyspareunia, inability to improve overactive bladder symptoms. She agrees to proceed. We are doing this in conjunction with hysterectomy which she is having for dysfunctional uterine Description of Procedure She was correctly identified. Informed consent obtained. She was brought the operating room. She was given appropriate anesthesia. She was given appropriate perioperative antibiotics. A time-out performed. I marked out the site of the inner thigh incisions. I anesthetized the skin and made those incisions. I anesthetized the anterior vaginal wall over the mid urethra. I made a 1 cm incision. I dissected out laterally taking great care not to injure the refilled vaginal wall. I passed the helical trocars. First on the left. Then on the right. I did this from the thigh incision towards the vaginal incision. The sling was connected to the trocars and brought out through the thigh incision. I tensioned the sling appropriately. I cut and the plastic sheaths. I then closed the incision with 2 0 Vicryl. On cystoscopy there is no tumors or surgical artifact. There was no surgical artifact in the urethra. I cut the excess sling material. Close incisions with glue. She was turned over her public records officer for the remainder of her procedure Implants Urethral sling Estimated Blood Loss 30 Drains Yes (Estes catheter) Packing No Pathology None sent Complications No immediate complications Condition Stable Disposition No change
[2024-04-11] MEDS: BUPIVACAINE/EPINEPHRINE 0.5% 50 ML VIAL 10 ML INFILTRATE (08:47)
--- NOTE | 2024-04-11 09:13 | W.PM.PROC2 ---
Procedure Note - Detailed Date of Procedure 04/11/24 Pre-op Diagnosis uterine fibroids, stress incont Post-op Diagnosis Same Procedure Performed 1. TOT (Dr. Murray) 2. Robotic assisted total laparoscopic hysterectomy with bilateral salpingectomy Surgeon Ed Degroot MD Anesthesia General Findings Uterus enlarged and globular. Tubes and ovaries without abnormality. Description of Procedure Patient prepped and draped in the usual manner this procedure. See Dr. Murray operative note for his portion of the case. Once we initiated the hysterectomy we placed cervical instruments for uterine mobility throughout the case. Abdominal trocar sites were marked and placed under direct visualization. The [employer] system was attached to these trocars and instruments were placed again under direct visualization. Surgeon moved to the console and findings were noted as above round ligament bilaterally cauterized and cut and bladder flap developed without difficulty. Posterior leaf the broad ligament was also incised to skeletonize the uterine vessels. Utero-ovarian ligaments were cauterized and cut to separate the ovary from the uterus as well. Prior to this the mesial salpinx was cauterized and cut bilaterally to remove the fallopian tube segments. Uterine vessels at this point were cauterized and cut with no bleeding. Posterior colpotomy incision was made and this was carried circumferentially to separate the cervix from the vagina. Uterus was then delivered into the vagina and the cuff was closed using V lock suture from the left angle to the midline and the right on to midline with good approximation hemostasis noted. Irrigation was undertaken there was no bleeding. Hematoma was then placed empirically over the vaginal cuff. Gas was allowed to escape trocars removed and incisions approximated using 4-0 Monocryl. Patient was sent to recovery room in stable condition. Estimated Blood Loss 30 Drains No Packing No Pathology Yes Complications No immediate complications Condition Stable Disposition PACU [facility] Billing Surgery - Charge Forward: Surgery Billing
[2024-04-11] MEDS: fentaNYL CITRATE INJ (*CRX) 100 MCG/2 ML VIAL 25 MCG IV PUSH ×3 (09:49→10:13)
--- NOTE | 2024-04-11 10:35 | PC.NURSE ---
Patient transferred to post room #289 via stretcher. Support person present. Oriented to unit, room, information board, admission packet and security measures. Patient verbalizes understanding.
[2024-04-11] MEDS: oxyCODONE HCL (*CRX) 5 MG TAB IR 10 MG PO ×2 (10:45→16:52)
[2024-04-11] MEDS: DEXTROSE 5%/0.45% SOD CHL 1,000 ML 125 ML IV CONT (11:00)
[2024-04-11] MEDS: KETOROLAC 30 MG/ML VIAL (*BKC) IV PUSH ×2 (13:30→21:19)
[2024-04-11] MEDS: SIMETHICONE 80 MG TAB.CHEW PO (15:35)
[2024-04-11] MEDS: DOCUSATE SODIUM 100 MG CAPSULE PO (15:36)
--- NOTE | 2024-04-11 16:27 | PM.OBDSVD ---
OB - DS: Summary Peripartum Data Procedures: Procedures Operation Date: 04/11/24 07:30 Actual Procedure Side Surgeon p Robotic Assisted Total Laparoscopic Hysterectomy with Bilateral Salpingectomy, Bilateral Ed Degroot MD s Urethral Sling Not Applicable Jed Murray MD Time Spent with Patient Time attestation: Total time spent providing and/or coordinating discharge services: DS: Data Data Completed and Pending Pending studies at discharge: Pending at discharge 04/11/24 08:44 Surgical [PTH] Routine Discharge Plan Discharge Patient Disposition: Home, Self-Care Patient Language: Gabonese Stand Alone Forms: General Discharge Instructions Discharge Medications: No Action lisinopril 20 mg tablet 20 mg PO DAILY Patient Comments: Says takes at HS atorvastatin 20 mg tablet 20 mg PO DAILY Patient Comments: Says takes at HS sertraline 100 mg tablet 100 mg PO DAILY Patient Comments: Says takes at HS quetiapine 200 mg tablet 200 mg PO QHS flecainide 100 mg tablet 50 mg PO Q12H fluticasone propion-salmeterol [Advair Diskus] 250-50 mcg/dose blister with device 1 inh inhalation BID hydrocodone-acetaminophen 5-325 mg tablet 1 tablet PO Q8H PRN (Reason: pain) alprazolam 0.25 mg tablet 0.25 mg PO QHS PRN (Reason: insomnia) metoprolol succinate 25 mg tablet extended release 24 hr 25 mg PO DAILY Patient Comments: Says takes at HS albuterol sulfate 90 mcg/actuation HFA aerosol inhaler 2 inh INHALATION QID PRN (Reason: shortness of breath or wheezing)
[2024-04-11] MEDS: FLUTICASONE/SALMETEROL 115-21 MCG INHALER 1 PUFF 2 PUFF INHALATION (20:50)
[2024-04-11] MEDS: QUEtiapine FUMARATE 100 MG TABLET 200 MG PO (21:09)
[2024-04-11] MEDS: ATORVASTATIN 20 MG TABLET PO (21:09)
[2024-04-11] MEDS: FLECAINIDE ACETATE 50 MG TABLET PO (21:09)
[2024-04-11] MEDS: SERTRALINE HCL 50 MG TABLET 100 MG PO (21:09)
[2024-04-11] MEDS: lisinopriL 20 MG TABLET PO (21:11)
[2024-04-11] MEDS: METOPROLOL SUCCINATE EXT REL 25 MG TABCR PO (21:12)
[2024-04-12 00:35] VITALS: BP 128/68; PULSE 66; RESP 16; TEMP 37; O2SAT 97
[2024-04-12] MEDS: oxyCODONE HCL (*CRX) 5 MG TAB IR 10 MG PO (00:41)
[2024-04-12] MEDS: KETOROLAC 30 MG/ML VIAL (*BKC) IV PUSH (04:40)
[2024-04-12] MEDS: ACETAMINOPHEN 500 MG TABLET 1000 MG PO (04:41)
[2024-04-12 04:54] VITALS: BP 117/59; PULSE 66; RESP 16; TEMP 37; O2SAT 99
[2024-04-12 05:19] LABS: Basophils Percent Auto 0.2 % (0.2-1.2); Eosinophils Percent Auto 0.2 % (0-4.4); Hemoglobin 11.5 g/dL (12.0-15.0); Immature Granulocyte Absolute 0.04 K/mm3 (0.00-0.031); Immature Granulocyte Percent A 0.3 % (0-0.5); Lymphocytes Absolute Auto 1.55 K/mm3 (0.9-3.2); Lymphocytes Percent Auto 13.2 % (18.3-44.2); Mean Corpuscular HGB Conc 31.9 g/dl (32-36); Mean Corpuscular Hemoglobin 29.6 pg (26-34); Mean Corpuscular Volume 92.8 fl (80-100); Mean Platelet Volume 10.7 fl (7.4-10.4); Monocytes Percent Auto 8.2 % (2.6-8.5); Neutrophils Absolute Auto 9.1 K/mm3 (1.3-6.7); Neutrophils Percent Auto 77.9 % (45.5-73.1); Platelet Count Result 262 k/mm3 (150-375); Red Blood Count 3.88 M/mm3 (4.2-5.4); Red Cell Distribution Width 14.7 % (11.5-14.5); White Blood Count 11.7 K/mm3 (4.5-10.0)
[2024-04-12 07:55] VITALS: BP 135/61; PULSE 66; RESP 16; TEMP 36.6; O2SAT 94
[2024-04-12] MEDS: SIMETHICONE 80 MG TAB.CHEW PO (08:38)
[2024-04-12] MEDS: FLECAINIDE ACETATE 50 MG TABLET PO (08:38)
[2024-04-12] MEDS: DOCUSATE SODIUM 100 MG CAPSULE PO (08:38)
--- NOTE | 2024-04-12 08:55 | WPDANESPN ---
Anes - Prog Note Post-Op Date/Time: 04/12/24 08:55 Cardiovascular status: normal Respiratory status: normal Airway patency: baseline Mental status: baseline Post-Op hydration status: normal Vital Signs: Last Vital Signs Temp 37.0 C 04/12/24 04:54 Pulse 66 04/12/24 04:54 Resp 16 04/12/24 04:54 BP 117/59 L 04/12/24 04:54 Pulse Ox 99 04/12/24 04:54 O2 Del Method Nasal Cannula 04/11/24 10:45 O2 Flow Rate 2 04/11/24 10:45 Pain Score (VAS): 1 I/O: Intake & Output 04/11/24 04/12/24 04/12/24 23:59 07:59 15:59 Output Total 200 Balance -200 Laboratory Tests 04/12/24 04:52 04/12/24 04:52 WBC 11.7 H RBC 3.88 L Hgb 11.5 L Hct 36.0 L MCV 92.8 MCH 29.6 MCHC 31.9 L RDW 14.7 H Plt Count 262 MPV 10.7 H Immature Gran % (Auto) 0.3 Neut % (Auto) 77.9 H Lymph % (Auto) 13.2 L [place] % (Auto) 8.2 Eos % (Auto) 0.2 Baso % (Auto) 0.2 Lymph # (Auto) 1.55 [place] # (Auto) 1.0 H Eos # (Auto) 0.0 Baso # (Auto) 0.0 Abs Immat Gran (auto) 0.04 H Absolute Neuts (auto) 9.1 H Absolute Nucleated RBC 0.000 Nucleated RBC % 0.0 Patient Feedback: Patient satisfied with anesthetic care.
[2024-04-12] MEDS: oxyCODONE HCL (*CRX) 5 MG TAB IR PO (09:50)
[2024-04-12 10:10] VITALS: PULSE 73; RESP 20
[2024-04-12] MEDS: FLUTICASONE/SALMETEROL 115-21 MCG INHALER 1 PUFF 2 PUFF INHALATION (10:10)
== END 2024-04-12 10:25 | disposition home or self-care (01) ==
LOC: ANHSURGERY 06:12 → ANHOB2 13:10
PROVIDERS: Obstetrics & Gynecology; PCP Family Medicine; Visit Provider Urology
PROC: (CPT 58571; principal; 2024-04-11 07:30)
PROC: (CPT 57288; 2024-04-11 07:30)
DX: D06.0 Carcinoma in situ of endocervix (principal); N39.3 Stress incontinence (female) (male); N72 Inflammatory disease of cervix uteri; D25.9 Leiomyoma of uterus, unspecified; N70.11 Chronic salpingitis; N83.8 Other noninflammatory disorders of ovary, fallopian tube and broad ligament; G89.18 Other acute postprocedural pain; F32.A Depression, unspecified; J45.909 Unspecified asthma, uncomplicated; I11.9 Hypertensive heart disease without heart failure; F12.90 Cannabis use, unspecified, uncomplicated; E66.9 Obesity, unspecified; Z68.37 Body mass index [BMI] 37.0-37.9, adult; Z79.51 Long term (current) use of inhaled steroids; Z79.891 Long term (current) use of opiate analgesic; Z98.890 Other specified postprocedural states; Z98.51 Tubal ligation status; Z98.1 Arthrodesis status; Z82.49 Family history of ischemic heart disease and other diseases of the circulatory system
CPT/HCPCS: 57288; 58571; S2900; 36415; 85025; 88307; 88342; 94640; 99199; A9270; C1771; J0690; J1100; J1171; J1885; J2003; J2250; J2405; J2704; J3010; J7030; J7120